=== PATIENT | male | born 1960 | race Caucasian/White ===

== ENCOUNTER 2017-08-20 05:49 | Inpatient (IN) | payer OTHER ==
[2017-08-20] MEDS ORDERED: BUPIVACAINE 0.25% 30 ML SDV ONE ×2 (07:21→12:57)
[2017-08-20] MEDS ORDERED: EPINEPHrine 1 MG/ML INJ ONE (07:21)
[2017-08-20] MEDS ORDERED: THROMBIN (BOVINE) 5,000 UNIT VIAL TP ONE (07:21)
[2017-08-20] MEDS ORDERED: CHLORHEXIDINE GLUC HIBICLENS 118 ML BTL TP ONE (07:21)
[2017-08-20] MEDS ORDERED: LR 1,000 ML IV ONE (07:37)
[2017-08-20] MEDS ORDERED: LIDOCAINE 1% 2 ML INJ ID PRN (07:37)
--- NOTE | 2017-08-20 09:00 | PDHPUP ---
History & Physical Update H&P update statement: This history and physical update is based on an assessment of the patient which was completed after admission or registration (within 24 hours), but prior to the surgery/procedure. H&P update: H&P reviewed & patient examined, no change in patient's condition since H&P completed
[2017-08-20] MEDS ORDERED: ACETAMINOPHEN 500 MG TAB PO ONE (09:01)
[2017-08-20] MEDS ORDERED: TRANEXAMIC ACID 1,000 MG in NS (SYRINGE) 50 ML IV ONE (09:01)
[2017-08-20] MEDS ORDERED: ceFAZolin 2 GM/SWFI 2 GM/20 ML SYR IVP ONE (09:01)
[2017-08-20] MEDS ORDERED: morphINE PF 0.2 MG in SYRINGE INTRATHECAL 1 SYR IT ONE (09:01)
[2017-08-20] MEDS ORDERED: GABAPENTIN 300 MG CAP PO ONE (09:01)
[2017-08-20] MEDS ORDERED: fentaNYL 50 MCG in SYRINGE INTRATHECAL 1 SYR IT ONE (09:01)
[2017-08-20] MEDS ORDERED: MIDAZOLAM 2 MG/2 ML VIAL IVP ONE (09:26)
[2017-08-20] MEDS ORDERED: ceFAZolin 2 GM/SWFI 20 ML SYR IVP ONE (09:29)
[2017-08-20] MEDS ORDERED: ACETAMINOPHEN 500 MG TAB ONE (09:29)
--- NOTE | 2017-08-20 09:29 | PDANEPAE ---
ANE History of Present Illness s/f TLIF for lumbar spondylolisthesis ANE Past Medical History - Cardiovascular History Hx Hypertension: Yes Hx Arrhythmias: No Hx Chest Pain: No Hx Coronary Artery / Peripheral Vascular Disease: No Hx CHF / Valvular Disease: No Hx Palpitations: No Cardiovascular History Comment: uses bp medications prn, mostly when working. pcp monitors bp medications - Pulmonary History Hx COPD: No Hx Asthma/Reactive Airway Disease: No Hx Recent Upper Respiratory Infection: No Hx Oxygen in Use at Home: No Hx Sleep Apnea: Yes Sleep Apnea Screening Result - Last Documented: Positive Pulmonary History Comment: cherise positive- uses cpap- instructed pt to bring - Neurologic History Hx Cerebrovascular Accident: No Hx Seizures: No Hx Dementia: No Neurologic History Comment: right foot and big toe has numbness and tingling currently - Endocrine History Hx Diabetes: No - Renal History Hx Renal Disorders: No Renal History Comment: cysts on kidneys during MRI - Liver History Hx Hepatic Disorders: No - Neurological & Psychiatric Hx Hx Neurological and Psychiatric Disorders: No - Cancer History Hx Cancer: No - Congenital Disorder History Hx Congenital Disorders: No - GI History Hx Gastrointestinal Disorders: No - Other Health History Other Health History: none - Chronic Pain History Chronic Pain: Yes (sciatic pain) - Surgical History Prior Surgeries: left knee scope. bilateral RTC. appy. deviated septum. UPPP / tonsillectomy. skin graft on right arm x2 ANE Review of Systems Review of Systems: - Exercise capacity METS (RN): 4 METS ANE Patient History - Allergies Allergies/Adverse Reactions: No Known Allergies Allergy (Verified 08/18/17 17:00) - Home Medications Home medications: home medication list seen and reviewed Home Medications: Lisinopril/Hctz 20/12.5MG [Zestoretic/Prinzide 20/12.5MG (*)] 1 ea PO DAILY PRN 08/18/17 [Last Taken 08/19/17] Nebivolol HCl [Bystolic 5 mg (*)] 5 mg PO DAILY PRN 08/18/17 [Last Taken 07:00] - NPO status NPO Status: no food or drink >8 hours NPO Since - Liquids (Date): 08/19/17 NPO Since - Solids (Date): 08/19/17 - Anes Hx Anes Hx: no prior problems Hx Anesthesia Complications (with details): except failed intubation last week at [facility] - Smoking Hx Smoking Status: Never smoked - Alcohol Use Alcohol Use: None - Family Anes Hx Family Anes Hx: none Family Hx Anesthesia Complications: none ANE Labs/Vital Signs - Labs - CBC WBC: reviewed and okay - Vital Signs Blood Pressure: 128/89 Heart Rate: 86 Respiratory Rate: 18 O2 Sat (%): 94 Height: 179.07 cm Weight: 122.47 kg ANE Physical Exam - Airway Neck exam: FROM Mallampati Score: Class 2 Mouth exam: normal dental/mouth exam - Pulmonary Pulmonary: no respiratory distress - Cardiovascular Cardiovascular: regular rate and rhythym - ASA Status ASA Status: II ANE Anesthesia Plan Anesthesia Plan: general endotracheal anesthesia (difficult airway equipment available)
[2017-08-20] MEDS ORDERED: VANCOMYCIN 1.5 GM in D5W 250 ML IV SCH (09:30)
[2017-08-20] MEDS ORDERED: MIDAZOLAM 2 MG/2 ML VIAL ONE (09:33)
[2017-08-20] MEDS ORDERED: fentaNYL 100 MCG/2 ML INJ ONE ×2 (09:43→13:46)
[2017-08-20] MEDS ORDERED: REMIFENTANIL HCL 1 MG VIAL ONE ×2 (09:43→11:22)
[2017-08-20] MEDS ORDERED: PROPOFOL/EMULSION 500 MG/50 ML BOTTLE IV ONE ×2 (09:43→11:22)
[2017-08-20] MEDS ORDERED: LIDOCAINE 2% 100 MG/5 ML SYR ONE (09:48)
[2017-08-20] MEDS ORDERED: PHENYLEPHRINE HCL 100 MCG/ML SYR ONE (10:00)
[2017-08-20] MEDS ORDERED: DEXAMETHASONE 4 MG/ML VIAL ONE ×2 (10:27→10:28)
[2017-08-20] MEDS: BACITRACIN 50,000 UNITS/10 ML SYR IRR ONE ×2 (12:06→13:02)
[2017-08-20] MEDS ORDERED: HYDROCODONE/APAP 5/325 TAB PO PRN (12:57)
[2017-08-20] MEDS ORDERED: PROMETHAZINE HCL 25 MG/ML INJ IVP PRN (12:57)
[2017-08-20] MEDS ORDERED: fentaNYL 100 MCG/2 ML INJ IVP PRN (12:57)
[2017-08-20] MEDS ORDERED: ALBUTEROL 3 ML DEYVIAL IH PRN (12:57)
[2017-08-20] MEDS ORDERED: DEXAMETHASONE 4 MG/ML VIAL IVP PRN (12:57)
[2017-08-20] MEDS ORDERED: LABETALOL HCL 5 MG/ML 20 ML MDV IVP PRN (12:57)
[2017-08-20] MEDS ORDERED: MEPERIDINE 25 MG/0.5 ML AMP IVP PRN (12:57)
[2017-08-20] MEDS ORDERED: LR 500 ML IV PRN (12:57)
[2017-08-20] MEDS ORDERED: ACETAMINOPHEN 500 MG TAB PO PRN (12:57)
[2017-08-20] MEDS ORDERED: oxyCODONE IR 5 MG TAB PO PRN ×2 (12:57→13:03)
[2017-08-20] MEDS ORDERED: NALOXONE HCL 0.4 MG/ML INJ IVP PRN ×2 (12:57→13:03)
[2017-08-20] MEDS ORDERED: PHENYLEPHRINE HCL 100 MCG/ML SYR IVP PRN (12:57)
[2017-08-20] MEDS ORDERED: METOCLOPRAMIDE 10 MG/2 ML VIAL IVP PRN (12:57)
[2017-08-20] MEDS ORDERED: LACTULOSE 20 GM/30 ML UDCUP PO PRN (13:03)
[2017-08-20] MEDS ORDERED: ONDANSETRON DISINTEGRATING 4 MG TAB PO PRN (13:03)
[2017-08-20] MEDS ORDERED: ONDANSETRON 4 MG/2 ML VIAL IVP PRN (13:03)
[2017-08-20] MEDS ORDERED: MAGNESIUM HYDROXIDE 30 ML UDCUP PO PRN (13:03)
[2017-08-20] MEDS ORDERED: diphenhydrAMINE 25 MG CAP PO PRN (13:03)
[2017-08-20] MEDS ORDERED: NEBIVOLOL HCL 5 MG TAB PO PRN (13:03)
[2017-08-20] MEDS ORDERED: BISACODYL 10 MG SUPP PR PRN (13:03)
[2017-08-20] MEDS ORDERED: LISINOPRIL/HCTZ 20/12.5MG 1 EA TAB PO PRN (13:03)
[2017-08-20] MEDS ORDERED: morphINE PCA 30 MG/30 ML PCA IV PRN (13:03)
--- NOTE | 2017-08-20 13:09 | POSTOPPROG ---
Post Op Note Date of Operation: 08/20/17 Surgeon: Gustabo Anaya Pipe Supervisor: Ming Anesthesiologist: Bert Anesthesia: GET(General Endotracheal) Pre-op Diagnosis: L5/S1 spondylolisthesis Post-op Diagnosis: same Indication: low back pain, right leg pain Procedure: L5/S1 TLIF Findings: DJD/spondylolisthesis Inf/Abcess present in the surg proc area at time of surgery?: No EBL: 100-500 Complications: None Drains: Hiro Gibbs
--- NOTE | 2017-08-20 13:10 | SOAPPROG ---
SOAP Progress Note Assessment/Plan: Assessment: 57 yo M sp L5/S1 TLIF Plan: stable to 3N LSO brace when out of bed please call with neuro changes 08/20/17 13:09 Subjective: + back pain, no leg pain Objective: Vital Signs Temp Pulse Resp BP Pulse Ox 36.5 C 86 18 128/89 H 94 08/20/17 07:49 08/20/17 09:29 08/20/17 09:29 08/20/17 09:29 08/20/17 09:29 somnolent PERRL, no facial droop PIETRO x 4 + light touch ICD10 Worksheet Patient Problems: Problems Problem Status Onset Fusion of spine of lumbar region Acute - ICD10 Problem Qualifiers (1) Fusion of spine of lumbar region
[2017-08-20] MEDS ORDERED: NS W/ 20 KCl/L 1,000 ML IV SCH (13:15)
[2017-08-20] MEDS ORDERED: ONDANSETRON 4 MG/2 ML VIAL ONE ×2 (13:49→14:04)
[2017-08-20] MEDS: ONDANSETRON 4 MG/2 ML VIAL IVP PRN ×2 (13:50→14:06)
--- NOTE | 2017-08-20 13:53 | PDMN ---
Medical Necessity Medical necessity: Patient meets inpatient criteria per physician/PA notes and [facility] [place] [place] (CPT 93184 / Medicare inpatient-only surgery.)
--- NOTE | 2017-08-20 13:58 | GOP ---
[f rep st] OPERATIVE REPORT DATE OF OPERATION: 08/20/2017 SURGEON: Gustabo Anaya MD NEUROSURGEON: Gustabo Anaya MD [employer] EXECUTIVE: FILI Centeno. ANESTHESIA: General endotracheal. PREOPERATIVE DIAGNOSIS: Severe grade 2 L5-S1 spondylolisthesis with critical neural foraminal encroa chment on the right, greater than left, and central canal stenosis. Intractable back pain and right lower extremity radiculopathy. Failed conservative care. Morbid obesity. POSTOPERATIVE DIAGNOSIS: Severe grade 2 L5-S1 spondylolisthesis with critical neural foraminal encro achment on the right, greater than left, and central canal stenosis. Intractable back pain and right lower extremity radiculopathy. Failed conservative care. Morbid obesity. PROCEDURE PERFORMED: Right-sided L5-S1 far lateral transpedicular decompression, with L5-S1 posterio r nonsegmental (pedicle screw and axial device) fixation and posterolateral fusion with local autogra ft, and bone morphogenic protein. L5-S1 posterior/transforaminal lumbar interbody fusion with 2 stru ctural PEEK interbody spacers, local autograft and bone morphogenic protein. Use of intraoperative m icroscopy, fluoroscopy, and computer volumetric, stereotactic navigation with intraoperative neurophy siologic testing. Injection of each intrathecal narcotic analgesics and subcutaneous and intramuscul ar local anesthesia for postoperative pain control. FINDINGS: ESTIMATED BLOOD LOSS: Less than 150 cc. INDICATIONS: The patient is a 57-year-old man who has intractable low back pain and right lower extr emity radiculopathy, secondary to a grade 2 spondylolisthesis at the L5-S1 level, severe/critical keiry ral foraminal encroachment, as well as central canal stenosis. He has failed extensive conservative care and presents now for surgical decompression and stabilization. Note that the patient is morbidl y obese and is at high risk for ongoing symptoms. DESCRIPTION OF PROCEDURE: After informed consent was obtained, the patient was taken to the operatin g room and placed in a prone position on the Hiro table. The lumbosacral area was prepped and le ped in a sterile fashion, and after fluoroscopic localization of the correct levels, the subcutaneous and intramuscular tissues were infiltrated with local anesthesia. A midline linear incision was then created over the L5-S1 spinous processes. This was carried down t he fascial layer, which was incised using monopolar electrocautery and carried in the subperiosteal p sandy along the spinous processes and lamina bilaterally. Intraoperative fluoroscopy was then utilize d to verify the correct levels. The films were also sent down to Radiology for confirmation of the c orrect levels. Following this, the microscope was brought in and a right-sided far lateral transpedicular decompress ion was performed with complete unroofing of the facet joint and neural foramen at the L5-S1 level on the right side. Following adequate decompression, the [employer] neuronavigational system was brought in and using [employer] volumetric stereotactic navigation, pedicle screws were placed bilaterally at L5 and S1. Each in dividual screw was tested neurophysiologically with monopolar electrostimulation and interpretation o f the potentials by the surgeon. Biplanar fluoroscopy was also utilized to verify good position of t he screws. Rods were then placed and secured under distraction, during which time, a complete diskec geneva was performed at the L5-S1 level with preparation of the endplates and placement of 2 structural PEEK interbody spacers, local autograft and bone morphogenic protein for an L5-S1 posterior/transfor aminal lumbar interbody fusion. The screw and jennifer system was then placed in a slight amount of compression in order to facilitate bon y union and to minimize the potential for posterior graft migration. The remaining lamina and facet joints on the left side, along with the pars fracture were then extensively drilled out, and the resi dual local autograft, along with bone morphogenic protein was placed out laterally for posterolateral fusion at the L5-S1 level. An axial device was then placed to secure the spinous process and signif icantly increase the likelihood of the posterolateral fusion taking and being solid with pars fractur e. A drain was then placed. The subcutaneous and intramuscular tissues were re-infiltrated with local a nesthesia, and the wound was closed in a layered fashion using interrupted Vicryl sutures, followed b y Steri-Strips on the skin. COMPLICATIONS: None. DISPOSITION: The patient is currently in the process being repositioned for extubation. /[id number]/MODL
[2017-08-20] MEDS ORDERED: ceFAZolin 2 GM/DEXTROSE 100 ML IV SCH (14:00)
--- NOTE | 2017-08-20 14:41 | POSTANESTH ---
Post Anesthetic Evaluation Cardiovascular Status: Tx Hyper/Hypo-tension (mild HTN, no meds today plus pain , will monitor) Respiratory Status: Tx Decrease in SpO2 (02 by NC) Level of Consciousness/Mental Status: Can Participate in Eval, Alert and Oriented Pain Control: Adequate, Prn Tx Ordered Nausea/Vomiting Control: Adequate, Prn Tx Ordered Complications Possibly Related to Anesthesia: None Noted
[2017-08-20] MEDS: ACETAMINOPHEN 500 MG TAB PO SCH ×2 (15:16→20:39)
[2017-08-20] MEDS: GABAPENTIN 300 MG CAP PO SCH ×2 (15:16→20:40)
[2017-08-20] MEDS: METHOCARBAMOL 750 MG TAB PO PRN (15:16)
[2017-08-20] MEDS: POLYETHYLENE GLYCOL 3350 17 GM PKT PO SCH ×2 (16:44→23:04)
[2017-08-20] MEDS: VANCOMYCIN 1.25 GM in NS 250 ML IV SCH (16:55)
[2017-08-20] MEDS: FAMOTIDINE 20 MG TAB PO SCH (20:39)
[2017-08-20] MEDS: SENNOSIDES/DOCUSATE SODIUM TAB PO SCH (20:41)
[2017-08-21] MEDS: VANCOMYCIN 1.25 GM in NS 250 ML IV SCH (05:00)
[2017-08-21 05:07] LABS: PLATELET COUNT 201 10^3/uL (150-400)
[2017-08-21] MEDS: GABAPENTIN 300 MG CAP PO SCH ×3 (06:25→22:06)
[2017-08-21] MEDS: ACETAMINOPHEN 500 MG TAB PO SCH ×3 (06:25→22:04)
--- NOTE | 2017-08-21 08:10 | NEUSURGPN ---
Assessment/Plan: Assessment: 57 yo M sp L5/S1 TLIF POD Plan: -Continue GERSON drain -Post op xrays pending -PT/OT -DVT prophx: TEDs, SCDs, Lovenox -LSO brace when out of bed -please call with neuro changes -Discussed with Dr. Bauman Subjective: Denies any new pain or weakness, numbness has improved Objective: NAD A&Ox3 MAEx4 5/5 and equal in BUE and BLE. Dressing with Sanguinous staining - Physician Discussed Patient with DrDavid: Héctor Neurosurgery Physical Exam - Vitals, I&O, Labs I and O 08/20/17 08/21/17 08/22/17 05:59 05:59 05:59 Intake Total 3000 Output Total 601 30 Balance 2399 -30 Weight 122.47 kg Intake: Oral (ml) 1000 IV Intake (ml) 2000 Output: Urine (ml) 201 Toilet 1 Urinal 200 Estimated Blood Loss (ml) 250 GERSON Drain Output (ml) 150 30 Back Hiro Gibbs 150 30 Other: Intake Quantity Yes Sufficient Vital Signs Temp Pulse Resp BP Pulse Ox 36.9 C 84 17 101/64 95 08/21/17 03:36 08/21/17 03:36 08/21/17 03:36 08/21/17 03:36 08/21/17 03:36 Laboratory Results 08/21/17 04:46 08/21/17 04:46 ICD10 Worksheet Patient Problems: Problems Problem Status Onset Fusion of spine of lumbar region Acute
[2017-08-21] MEDS: FAMOTIDINE 20 MG TAB PO SCH ×2 (09:13→22:05)
[2017-08-21] MEDS: SENNOSIDES/DOCUSATE SODIUM TAB PO SCH ×2 (09:13→22:07)
[2017-08-21] MEDS: POLYETHYLENE GLYCOL 3350 17 GM PKT PO SCH ×3 (09:14→22:06)
[2017-08-21] MEDS: ENOXAPARIN 40 MG/0.4 ML SYR SC SCH ×2 (09:14→09:18)
[2017-08-21] MEDS: METHOCARBAMOL 750 MG TAB PO PRN (09:14)
--- NOTE | 2017-08-21 09:52 | ASMTCMCOM ---
CM Note CM Note Notes: 08/21/2017 Case Management Note Pt admitted for L5/S1 TLIF Lum Su Fusion. PT is recommending outpatient rehab upon discharge. Pt has family support and is employed. Pt was independent in ADL's prior to admission. Case Management d/c poc: anticipating independent with outpatient rehab as directed. Case Management available should needs change. Date Signed: 08/21/2017 09:51 AM Electronically Signed By:Negar Stark RN
[2017-08-22] MEDS: GABAPENTIN 300 MG CAP PO SCH (05:43)
[2017-08-22] MEDS: ACETAMINOPHEN 500 MG TAB PO SCH (06:31)
[2017-08-22 07:26] VITALS: BP 139/90
[2017-08-22] MEDS: ENOXAPARIN 40 MG/0.4 ML SYR SC SCH (08:11)
[2017-08-22] MEDS: FAMOTIDINE 20 MG TAB PO SCH (08:11)
[2017-08-22] MEDS: SENNOSIDES/DOCUSATE SODIUM TAB PO SCH (08:12)
[2017-08-22] MEDS: POLYETHYLENE GLYCOL 3350 17 GM PKT PO SCH (08:12)
--- NOTE | 2017-08-22 09:59 | NEUSURGPN ---
Date of Surgery: 08/20/17 Post Op Day: 2 Assessment/Plan: Assessment: 57 yo M sp L5/S1 TLIF POD #2 Plan: -Continue GERSON drain-160 output-will dc home with follow up Thursday with totals to possibly remove-he will need to call the office -Post op xrays look good -PT/OT-CPM -pt doing well with current pain control-not taking much pain medications -DVT prophx: TEDs, SCDs, Lovenox -LSO brace when out of bed -please call with neuro changes -Discussed with Dr. Bauman Subjective: Awake and alert. NAD. Eating/drinking and voiding. No f/c/n/v/d Objective: NAD A&Ox3 MAEx4 5/ and equal in BUE and BLE. Dressing CDI GERSON with Sanguinous drainage Neuro Check Frequency: per routine Urinary Catheter in Place: No - Physician Discussed Patient with DrDavid: Héctor Neurosurgery Physical Exam - Vitals, I&O, Labs I and O 08/21/17 08/22/17 08/23/17 05:59 05:59 05:59 Intake Total 3000 Output Total 601 160 Balance 2399 -160 Weight 122.47 kg Intake: Oral (ml) 1000 IV Intake (ml) 2000 Output: Urine (ml) 201 Toilet 1 Urinal 200 Estimated Blood Loss (ml) 250 GERSON Drain Output (ml) 150 160 Back Hiro Gibbs 150 160 Other: Intake Quantity Yes Yes Sufficient Number of Voids Toilet 1 Urinal 2 Number of Stools Toilet 1 Urinal 1 Vital Signs Temp Pulse Resp BP Pulse Ox 36.5 C 59 L 14 139/90 H 92 08/22/17 07:24 08/22/17 07:24 08/22/17 07:24 08/22/17 07:24 08/22/17 07:24 Laboratory Results 08/21/17 04:46 08/21/17 04:46 ICD10 Worksheet Patient Problems: Problems Problem Status Onset Fusion of spine of lumbar region Acute
--- NOTE | 2017-08-22 11:47 | ASDISCHSUM ---
Discharge Information Plan Status: Medically Cleared to Leave: Discharge Date:08/22/2017 11:45 AM CM D/C Disposition: ADT D/C Disposition:Home, Routine, Self-Care Projected Discharge Date:08/22/2017 11:45 AM Transportation at D/C: Discharge Delay Reason: Follow-Up Date:08/22/2017 11:45 AM Discharge Slot: Final Diagnosis: Placement Information Patient Contact Information Contact Name:RAMILA Relationship: Address: Work Phone: City: [facility] Phone: State/Zip Code: Email: Financial Information Financial Class:HMO and PPO Plans Primary Plan Desc:[facility] Primary Plan Number:[id number] Secondary Plan Desc: Secondary Plan Number: Assessment Information [facility] CM Progress Note CM Note CM Note Notes: 08/21/2017 Case Management Note Pt admitted for L5/S1 TLIF Lum Su Fusion. PT is recommending outpatient rehab upon discharge. Pt has family support and is employed. Pt was independent in ADL's prior to admission. Case Management d/c poc: anticipating independent with outpatient rehab as directed. Case Management available should needs change. Date Signed: 08/21/2017 09:51 AM Electronically Signed By:Negar Stark RN Case Management Discharge Plan Note Case Management Discharge Discharge Order Complete? Answers: Yes Patient to Obtain Answers: via Family Medications Transportation Arranged Answers: Family/Friends Family Notified Answers: Yes Discharge Comments Notes: SARAH spoke with Lindsey BHATTI, patient to discharge today, will drive home to [place] with family member and Aunt from [place] will be staying with patient through weekend. DAVY shares patient d/c'ing with GERSON and will contact Neurosurgery on Thursday re: removal and will follow up as recommended. Patient to discharge today independently, CM available to follow with any further D/C needs. D/C plan: D/C today 08/22/17 independently with family. Date Signed: 08/22/2017 11:03 AM Electronically Signed By:Jalyn Petersen Intervention Information
== END 2017-08-22 11:45 | disposition home or self-care (01) | DRG 460 ==
LOC: F3N 05:49 → OBSVTOIN 05:49 → F3N 14:32
PROVIDERS: ADMIT Neurological Surgery; ATTEND Neurological Surgery
DX: M43.17 Spondylolisthesis, lumbosacral region (principal); M48.07 Spinal stenosis, lumbosacral region; E66.01 Morbid (severe) obesity due to excess calories; Z68.37 Body mass index [BMI] 37.0-37.9, adult; I10 Essential (primary) hypertension; G47.33 Obstructive sleep apnea (adult) (pediatric)
CPT/HCPCS: 97161-GP; 97166-GO; 97535-GO; C1713; J0171; J0690; J1100; J1650; J2001; J2250; J2274; J2370; J2405; J2704; J3010; J3370